=== PATIENT | female | born 1965 | race Caucasian/White ===

== ENCOUNTER 2017-02-21 19:10 | Emergency (ER) | payer BC, OTHER ==
[~2017-02-21] VITALS: Ht 162.6 cm; Wt 81.0 kg
[~2017-02-21 19:10] MED LIST: MVI LIQUID PO
[2017-02-21 19:11] VITALS: TEMP 36.5; Ht 162.6 cm; Wt 81.0 kg
[2017-02-21 19:17] VITALS: O2SAT 98
[2017-02-21] MEDS ORDERED: SODIUM CHLORIDE 0.9% 1000ML 1,000 ML IV STA (19:19)
[2017-02-21] MEDS ORDERED: LORAZEPAM 2 MG/ML 1 ML VIAL IV STA (19:19)
--- NOTE | 2017-02-21 19:32 | EMERGENCY ROOM VISIT NOTE ---
History Report prepared by Joseph: Eugenia An Under the Supervision of: Dr. Cristian Dinh M.D. First contact with patient: 19:12 Chief Complaint: CARDIAC ASSESSMENT Stated Complaint: CHEST PAIN,DRY MOUTH, LIGHT HEADED, SHAKING History of Present Illness The patient is a 51 year old female who presents to the Emergency Room with complaints of worsening chest pain starting two hours ago. The patient currently rates her pain as an 8/10 in severity. She describes the pain as "tight." She reports that she was watching Netflix when she started to experience the pain. She states that the pain went into her arms. The patient notes that it felt like heart palpitations. She states that she is short of breath, nauseous, lightheaded, dizziness, a dry mouth, and her hands are numb. She reports that she had a lot to drink last night and thought this might be from that. She states that she tried to breathe through it with no relief. She notes that she has never had this happen before. The patient states that lying down seems to make it worse. She notes that her father has a history of heart attacks. She denies any recent long trips and being diabetic. Source of History: patient Onset: two hours ago Position: chest Symptom Intensity: 8/10 Quality: other (tightness) Timing: worsening Modifying Factors (Worsening): other (lying down) Associated Symptoms: + SOB, + nausea Note: The patient complains of lightheadedness, dizziness, a dry mouth, and numbness in her hands. The patient denies any long trips. Review of Systems See HPI for pertinent positives & negatives. A total of 10 systems reviewed and were otherwise negative. Past Medical & Surgical Medical Problems: (1) Gallbladder anomaly (2) Pneumonia (3) Stomach problems (4) Urinary problem Surgical Problems: (1) History of hysterectomy Family History Cancer Diabetes mellitus Heart disease Hypertension Kidney disease Kidney stones Social History Smoking Status: Never Smoker Alcohol Use: occasionally Drug Use: none Marital Status: single Housing Status: lives alone Occupation Status: employed Current/Historical Medications No Active Prescriptions or Reported Meds Allergies Coded Allergies: Morphine (Verified Allergy, Unknown, GI SYMPTOMS, 02/21/17) Penicillins (Verified Allergy, Unknown, ANAPHYLAXIS, 02/21/17) Physical Exam Vital Signs Date Time Temp Pulse Resp B/P Pulse Ox O2 Delivery O2 Flow Rate FiO2 02/21/17 20:30 90 20 144/86 98 Room Air 02/21/17 19:44 Room Air 02/21/17 19:23 91 02/21/17 19:17 Room Air 02/21/17 19:17 98 Room Air 02/21/17 19:11 36.5 111 28 164/93 100 Room Air Physical Exam GENERAL: Patient is a healthy-appearing well-nourished HEAD: Normocephalic atraumatic EYES: Ocular movements intact pupils equal and react to light OROPHARYNX mucous membranes are moist no exudates present no erythema or edema present NECK: Supple no nuchal rigidity CHEST: Good equal expansion LUNGS: Clear and equal to auscultation. Hyperventilating on exam. CARDIAC: Normal S1 and S2 ABDOMEN: Soft nontender no guarding BACK: No CVA tenderness EXTREMITIES: No pain upon palpation normal muscle strength in all groups no clubbing cyanosis or edema NEURO: Patient is following commands is answering questions appropriately. Alert and oriented x3 Cranial Nerves 2-12 grossly intact Medical Decision & Procedures ER Provider Diagnostic Interpretation: Radiology results as stated below per my review and radiologist interpretation: CHEST ONE VIEW PORTABLE HISTORY: Atypical CHEST PAIN COMPARISON: None. FINDINGS: The lungs are clear. Cardiac silhouette is normal in size. No pleural effusions. No pneumothorax. IMPRESSION: No acute process. Electronically signed by: Ryan Samson M.D. 02/21/2017 8:22 PM Dictated Date/Time: 02/21/2017 8:20 PM Laboratory Results 02/21/17 19:30 Red Blood Count 4.27, Mean Corpuscular Volume 94.8, Mean Corpuscular Hemoglobin 32.6, Mean Corpuscular Hemoglobin Concent 34.3, Mean Platelet Volume 11.0, Neutrophils (%) (Auto) 55.3, Lymphocytes (%) (Auto) 36.6, Monocytes (%) (Auto) 6.7, Eosinophils (%) (Auto) 0.8, Basophils (%) (Auto) 0.4, Neutrophils # (Auto) 6.64, Lymphocytes # (Auto) 4.39, Monocytes # (Auto) 0.80, Eosinophils # (Auto) 0.10, Basophils # (Auto) 0.05 02/21/17 19:30 Test 02/21/17 19:30 White Blood Count 12.01 K/uL (4.8-10.8) Red Blood Count 4.27 M/uL (4.2-5.4) Hemoglobin 13.9 g/dL (12.0-16.0) Hematocrit 40.5 % (37-47) Mean Corpuscular Volume 94.8 fL (80-100) Mean Corpuscular Hemoglobin 32.6 pg (25-34) Mean Corpuscular Hemoglobin Concent 34.3 g/dl (32-36) Platelet Count 379 K/uL (130-400) Mean Platelet Volume 11.0 fL (7.4-10.4) Neutrophils (%) (Auto) 55.3 % Lymphocytes (%) (Auto) 36.6 % Monocytes (%) (Auto) 6.7 % Eosinophils (%) (Auto) 0.8 % Basophils (%) (Auto) 0.4 % Neutrophils # (Auto) 6.64 K/uL (1.4-6.5) Lymphocytes # (Auto) 4.39 K/uL (1.2-3.4) Monocytes # (Auto) 0.80 K/uL (0.11-0.59) Eosinophils # (Auto) 0.10 K/uL (0-0.5) Basophils # (Auto) 0.05 K/uL (0-0.2) RDW Standard Deviation 44.0 fL (36.4-46.3) RDW Coefficient of Variation 12.8 % (11.5-14.5) Immature Granulocyte % (Auto) 0.2 % Immature Granulocyte # (Auto) 0.03 K/uL (0.00-0.02) Anion Gap 9.0 mmol/L (3-11) Est Creatinine Clear Calc Drug Dose 96.0 ml/min Estimated GFR () 112.1 Estimated GFR (Non- 96.7 BUN/Creatinine Ratio 23.2 (10-20) Calcium Level 8.9 mg/dl (8.5-10.1) Total Bilirubin 0.4 mg/dl (0.2-1) Direct Bilirubin < 0.1 mg/dl (0-0.2) Aspartate Amino Transf (AST/SGOT) 21 U/L (15-37) Alanine Aminotransferase (ALT/SGPT) 42 U/L (12-78) Alkaline Phosphatase 87 U/L (45-117) Total Creatine Kinase 115 U/L (26-192) Creatine Kinase MB 1.1 ng/ml (0.5-3.6) Creatine Kinase MB Ratio 1.0 (0-3.0) Troponin I < 0.015 ng/ml (0-0.045) Total Protein 7.4 gm/dl (6.4-8.2) Albumin 4.0 gm/dl (3.4-5.0) Lipase 215 U/L (73-393) Labs reviewed by ED physician. Medications Administered Medications (Trade) Dose Ordered Sig/Petros Route Start Time Stop Time Status Last Admin Dose Admin Lorazepam 1 mg 1 mg NOW STAT IV 02/21/17 19:19 02/21/17 19:20 DC 02/21/17 19:39 1 MG Sodium Chloride (Nss 1000ml) 1,000 ml @ 999 mls/hr Q1H1M STAT IV 02/21/17 19:19 02/21/17 20:19 DC 02/21/17 19:39 999 MLS/HR ECG Indication: chest pain Rate (beats per minute): 103 Rhythm: sinus tachycardia Findings: paced rhythm, no ectopy ED Course 1912: Past medical records reviewed. The patient was evaluated in room B2. A complete history and physical examination was performed. 1918: Ordered NSS 1000 ml @ 999 mls/hr IV, Ativan Inj 1 mg IV. 2039: Upon reexamination the patient is resting comfortably. I discussed results and treatment plan with the patient. She verbalizes agreement and understanding. The patient is ready for discharge. Medical Decision Medication Reconciliation: I attest that I have personally reviewed the patient' s current medication list Blood Pressure Screening: Patient was found to have an elevated blood pressure and was referred to their primary care doctor for recheck and further treatment Differential diagnosis: Etiologies such as cardiac ischemia, aortic dissection, pulmonary embolism, pneumonia, pneumothorax, musculoskeletal, infections, pericarditis, myocarditis , esophageal rupture, gastrointestinal, as well as others were entertained. This is a 51-year-old female who presents emergency department complaining of multiple complaints however they all seem to be related to her hyperventilation. The patient was given Ativan which resulted in cessation of her symptoms. She has a normal EKG normal CK-MB and troponin. I do believe that the patient is well enough that she can be discharged home however I stressed the need for follow-up with cardiology. Patient was in agreement with the treatment plan. Impression Primary Impression: Chest pain Scribe Attestation The scribe's documentation has been prepared under my direction and personally reviewed by me in its entirety. I confirm that the note above accurately reflects all work, treatment, procedures, and medical decision making performed by me. Departure Information Dispostion Home / Self-Care Prescriptions No Active Prescriptions or Reported Meds Referrals No Doctor, Assigned (PCP) Forms IMPORTANT VISIT INFORMATION Patient Instructions My [facility] Additional Instructions Follow up with DR Harris's office this week No strenuous activity until follow up You were found to have an elevated blood pressure today (>120 sytolic or >90 diastolic). Per medicare guidelines, you need to follow up with this blood pressure screening with your Primary Care Physician (PCP). For a new PCP call [phone]. You received narcotic or benzodiazepene medication while in the emergency room today. Do not drive, operate heavy machinery, or drink alcohol under the influence of this medication. You have been examined and treated today on an emergency basis only. This is not a substitute for, or an effort to provide, complete comprehensive medical care. It is impossible to recognize and treat all injuries or illnesses in a single emergency department visit. It is therefore important that you follow up closely with Dr Purcell. Call as soon as possible for an appointment. Thank you for your time and consideration. I look forward to speaking with you again soon. Please don't hesitate to call us if you have any questions. Problem Qualifiers Primary Impression: Chest pain Chest pain type: precordial pain Qualified Codes: R07.2 - Precordial pain
[2017-02-21 19:52] LABS: BASO % 0.4 %; BASO ABS # 0.05 K/uL (0-0.2); COMPLETE YES; EOS % 0.8 %; HEMATOCRIT 40.5 % (37-47); IG% 0.2 %; LYMPH % 36.6 %; LYMPH ABS # 4.39 K/uL (1.2-3.4); MEAN CELL VOLUME 94.8 fL (80-100); MEAN CORPUSCULAR HEMOGLOBIN 32.6 pg (25-34); MEAN CORPUSCULAR HGB CONC 34.3 g/dl (32-36); MONO % 6.7 %; NEUT % 55.3 %; PLATELET COUNT 379 K/uL (130-400); RED BLOOD COUNT 4.27 M/uL (4.2-5.4); WHITE BLOOD COUNT 12.01 K/uL (4.8-10.8)
[2017-02-21 20:09] LABS: ALT/SGPT 42 U/L (12-78); AST/SGOT 21 U/L (15-37); BLOOD UREA NITROGEN 17 mg/dl (7-18); BUN/CREATININE RATIO 23.2 (10-20); CALCIUM 8.9 mg/dl (8.5-10.1); CARBON DIOXIDE 26 mmol/L (21-32); CHLORIDE 107 mmol/L (98-107); CREATININE 0.73 mg/dl (0.60-1.20); GLUCOSE 92 mg/dl (70-99); POTASSIUM 3.5 mmol/L (3.5-5.1); SODIUM 142 mmol/L (136-145)
[2017-02-21 20:15] LABS: ALKALINE PHOSPHATASE 87 U/L (45-117)
--- NOTE | 2017-02-21 20:23 | DIAGNOSTIC IMAGING REPORT ---
CHEST ONE VIEW PORTABLE HISTORY: Atypical CHEST PAIN COMPARISON: None. FINDINGS: The lungs are clear. Cardiac silhouette is normal in size. No pleural effusions. No pneumothorax. IMPRESSION: No acute process. Electronically signed by: Ryan Samson M.D. 02/21/2017 8:22 PM Dictated Date/Time: 02/21/2017 8:20 PM
[2017-02-21 20:30] VITALS: BP 144/86; PULSE 90; O2SAT 98
== END 2017-02-21 21:05 | disposition home or self-care (01) ==
LOC: C.EDB 19:12
DX: R07.2 Precordial pain (principal); R00.0 Tachycardia, unspecified; R06.02 Shortness of breath; R11.0 Nausea; Z87.01 Personal history of pneumonia (recurrent); Z87.19 Personal history of other diseases of the digestive system; Z87.448 Personal history of other diseases of urinary system; Z82.49 Family history of ischemic heart disease and other diseases of the circulatory system; Z83.3 Family history of diabetes mellitus; Z84.1 Family history of disorders of kidney and ureter